=== PATIENT | female | born 1985 | race Caucasian/White ===

== ENCOUNTER 2018-11-03 09:12 | Emergency (ER) | payer BC ==
[2018-11-03 09:19] VITALS: BP 131/82; PULSE 75; RESP 18; TEMP 97.5
--- NOTE | 2018-11-03 10:24 | ED ---
Lower Extremity Injury HPI - General Chief Complaint: Extremity Injury, Lower Stated Complaint: Torn big toe nail almost off Time Seen by Provider: 11/03/18 09:31 Source: patient, RN notes reviewed, old records reviewed Mode of arrival: ambulatory Limitations: no limitations - History of Present Illness Initial Comments: 33-year-old female presents emergency room today for evaluation for chief complaint of hitting her left great toenail on a chair. She reports that the backboard was almost falling off. She reports that she just put a bandage over it and came here for further evaluation. Patient states that she has full range of motion of the toe. Denies any other significant complaints. - Related Data Previous Rx's Medication Instructions Recorded Cephalexin [Keflex] 500 mg PO Q6HR 5 Days #20 cap 11/03/18 Allergies Allergy/AdvReac Type Severity Reaction Status Date / Time No Known Allergies Allergy Verified 11/03/18 09:15 Review of Systems ROS Statement: Those systems with pertinent positive or pertinent negative responses have been documented in the HPI. ROS Other: All systems not noted in ROS Statement are negative. Past Medical History Past Medical History: No Reported History History of Any Multi-Drug Resistant Organisms: None Reported Additional Past Surgical History / Comment(s): ovarian cyst removal Past Psychological History: No Psychological Hx Reported Smoking Status: Never smoker Past Alcohol Use History: Occasional Past Drug Use History: None Reported General Exam - General Exam Comments Initial Comments: 33-year-old female. Alert and oriented. No significant distress. Limitations: no limitations General appearance: alert, in no apparent distress Head exam: Present: atraumatic, normocephalic, normal inspection Eye exam: Present: normal appearance, PERRL, EOMI. Absent: scleral icterus, conjunctival injection, periorbital swelling ENT exam: Present: normal exam, mucous membranes moist Neck exam: Present: normal inspection. Absent: tenderness, meningismus, lymphadenopathy Respiratory exam: Present: normal lung sounds bilaterally. Absent: respiratory distress, wheezes, rales, rhonchi, stridor Cardiovascular Exam: Present: regular rate, normal rhythm, normal heart sounds. Absent: systolic murmur, diastolic murmur, rubs, gallop, clicks GI/Abdominal exam: Present: soft, normal bowel sounds. Absent: distended, tenderness, guarding, rebound, rigid Extremities exam: Present: normal inspection, full ROM, normal capillary refill, other (Patient has 80% removal of the left great toenail. He then by cuticle scan over the lateral aspect of the toe. No significant bleeding noted.). Absent: tenderness, pedal edema, joint swelling, calf tenderness Back exam: Present: normal inspection Neurological exam: Present: alert, oriented X3, CN II-XII intact Psychiatric exam: Present: normal affect, normal mood Course Vital Signs 11/03/18 09:15 Temperature 97.5 F L Pulse Rate 75 Respiratory 18 Rate Blood Pressure 131/82 O2 Sat by Pulse 100 Oximetry Procedures - Procedures Initial comment: Patient's left great toenail was removed after drinking a nerve block with 3 mL of 1% lidocaine with epinephrine. Patient had the rest of the nail carefully dissected, and removed with gentle pulling with forceps. No significant bleeding was noted. Wound was stressed dressed with a Caraballo ointment and sterile dressing. Medical Decision Making - Medical Decision Making is a 33-year-old female presents today for evaluation for partial removal of the left great toe after hitting it on while moving chairs. Patient's nail was 80% effaced. After instilling lidocaine was able to carefully dissected rest of the nail. No lacerations noted to the nail bed. Patient advised that her nail may regrow or could be damaging growth internally. Discussion is follow-up with podiatry. Patient understands treatment plan will comply. Give the Patient a few days Keflex. Disposition Clinical Impression: Nail avulsion of toe Disposition: HOME SELF-CARE Condition: Good Instructions (If sedation given, give patient instructions): Nail Avulsion (ED) Additional Instructions: Patient advised to follow-up with podiatry. Take antibiotic as prescribed. Keep the toe covered, however allow the area to air out after 1-2 days. Patient should monitor her new nail growth. Allow the nail to grow up and to avoid ingrown toenails. Monitor for any infection including redness swelling or drainage. Prescriptions: Cephalexin [Keflex] 500 mg PO Q6HR 5 Days #20 cap Is patient prescribed a controlled substance at d/c from ED?: No Referrals: None,Stated [Primary Care Provider] - 1-2 days Time of Disposition: 10:23
== END 2018-11-03 10:33 | disposition home or self-care (01) ==
LOC: EC 09:12
DX: S91.202A Unspecified open wound of left great toe with damage to nail, initial encounter (principal); W22.03XA Walked into furniture, initial encounter
CPT/HCPCS: 11730; 99283